=== PATIENT | female | born 1970 | race African-American/Black ===

== ENCOUNTER 2016-06-12 15:38 | Emergency (ER) ==
--- NOTE | 2016-06-12 17:15 | PROVIDER DOCUMENTATION ---
HPI-EENT General - General Chief Complaint: Toothache Stated Complaint: TOOTHACHE Time Seen by Provider: 06/12/16 16:44 Source: patient Allergies/Adverse Reactions: Patient Allergies Allergy/AdvReac Type Severity Reaction Status Date / Time Sulfa (Sulfonamide Allergy NAUSEA Verified 06/12/16 16:36 Antibiotics) codeine AdvReac Severe VOMITING Verified 06/12/16 16:36 Home Medications: Hydrochlorothiazide 12.5 mg PO DAILY 02/06/15 Lisinopril 20 mg PO DAILY 02/06/15 - History of Present Illness-EENT General Nature of Presenting Problem: REPORTS RIGHT UPPER TOOTH PAIN X 1 DAY REPORTS PREVIOUS FX. STATES HURTS SO BAD HAD TO LEAVE WORK. IBUPROFEN NO RELIEF. EENT Location: reports: mouth Quality of Pain: reports: aching Severity: reports: severe Onset/Duration: reports: 24 hours ago Timing: reports: still present Prearrival Treatment: Initiated over the counter meds Locality of Occurance: Home Similar Symptoms Previously?: No Recently seen or treated by another doctor?: No Review of Systems - Adult - REVIEW OF SYSTEMS - ADULT Constitutional: denies: chills, fever, fatique Eyes: reports: no symptoms reported Ears, Nose, Mouth & Throat: reports: mouth/dental pain. denies: ear pain, sinus problem, throat pain Cardiovascular: reports: no symptoms reported Respiratory: denies: cough, shortness of breath, wheezing Gastrointestinal: reports: no symptoms reported Genitourinary: reports: no symptoms reported Musculoskeletal: reports: no symptoms reported Integumentary: reports: no symptoms reported Neurological: reports: no symptoms reported Psychiatric: reports: no symptoms reported Endocrine: reports: no symptoms reported Hematologic/Lymphatic: reports: no symptoms reported Allergic/Immunologic: reports: no symptoms reported All Other Systems: Reviewed and Negative Past History - Adult - PAST MEDICAL HISTORY-ADULT Review of Records: reports: Nursing Assessment Review Major Childhood Illnesses: reports: denies history Cardiovascular: reports: HTN Respiratory: reports: denies history Gastrointestinal: reports: denies history Obstetrical/Gynecological: reports: denies history Genitourinary: reports: denies history Musculoskeletal: reports: denies history Neurological: reports: denies history Psychiatric: reports: denies history Endocrine/Immune: reports: other Other Conditions: reports: denies history - PRIOR SURGERIES/PROCEDURES Surgical/Procedure History: reports: BTL, other (ECTOPIC ) - PRIOR HOSPITALIZATIONS Prior Hospitalizations: reports: for other non-related - IMMUNIZATION STATUS Childhood Immunizations: See Nurse Assessment Flu Vaccine: See Nurse Assessment - FAMILY HISTORY Family History: diabetes, CVA/TIA, HTN - SOCIAL HISTORY Smoking: denies Substance Use: none/never Physical Exam- EENT - Physical Exam EENT Initial Vital Signs Reviewed: Yes General Appearance: appears well, alert, no apparent distress Eye Exam: bilateral eye: normal inspection, PERRL, EOMI Ear Exam: bilateral ear: auricle normal, canal normal, TM normal Nasal Exam: normal inspection Throat Exam: pharynx normal, dental tenderness Mouth,Throat: 1 - #5 DENTAL FRACTURED AND DECAY Respiratory: chest non-tender, lungs clear, normal breath sounds, no pleuratic chest pain, no respiratory distress, no accessory muscle use Cardiovascular: normal peripheral pulses, regular rate, rhythm, no edema, no gallop, no JVD, no murmur Abdominal Exam: normal bowel sounds, non tender, soft, no organomegaly, no pulsatile mass Lymphatic: no adenopathy Back Exam: normal inspection, no CVA tenderness, no vertebral tenderness Extremity: normal range of motion, non-tender, normal gait, normal inspection, no pedal edema, no calf tenderness, normal capillary refill, pelvis stable Integumentary: normal color, normal turgor, warm/dry 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, no motor/sensory deficits Psych/Mental Status: AL, normal mood/affect, normal thought content, normal thought process, oriented x 3 Progress - PLAN OF CARE/RESULTS Progress/Plan/Lab Results: Vital Signs - 24 hr 06/12/16 16:32 Temperature 97.2 F L Pulse Rate 85 Respiratory 18 Rate Blood Pressure 172/87 O2 Sat by Pulse 99 Oximetry Departure - Departure Time of Disposition Order: 17:14 DIAGNOSIS: Pain, dental, Dental caries Disposition: HOME 01 Certified Medical Emergency: Emergent Condition: Stable Additional Instructions: FOLLOW UP WITH DENTIST ED Follow Up Instructions: You have been treated by a care provider in the Emergency Department. These instructions are being provided to you so you can have an understanding of how to care for yourself upon discharge. Upon discharge from the Emergency Department, you are responsible for making arrangements for follow-up care by a physician of your choice. Take all prescribed medications as directed. Return to the Emergency Department immediately for any new or worsening symptoms. You may call the Physician Referral phone number at [phone] to obtain a list of Physicians who are taking new patients. Referrals: Willam Rueda MD [Primary Care Provider] - Elia Reilly DMD [DENTISTRY] - Attestation - Scribe Verification/Attestation Scribe:: Christian Carranza Acting as Scribe for:: Danielle Sim Scribe documention review:: This chart was documented by a scribe and accurately reflects the service the provider performed and the decisions made by the provider.
[2016-06-12] MEDS ORDERED: TORADOL IM STA (17:30)
[2016-06-12 17:55] VITALS: BP 176/101
== END 2016-06-12 17:52 | disposition home or self-care (01) ==
LOC: P.ED 15:38
DX: K02.9 Dental caries, unspecified (principal); K08.89 Other specified disorders of teeth and supporting structures; S02.5XXA Fracture of tooth (traumatic), initial encounter for closed fracture; I10 Essential (primary) hypertension; Z79.899 Other long term (current) drug therapy; Z83.3 Family history of diabetes mellitus; Z82.49 Family history of ischemic heart disease and other diseases of the circulatory system; Z82.3 Family history of stroke
CPT/HCPCS: 96372; J1885